=== PATIENT | female | born 1995 | race Hispanic/Latino ===

== ENCOUNTER 2020-10-16 18:47 | Emergency (ER) | payer BC ==
--- NOTE | 2020-10-17 10:46 | Emergency Department Report ---
<TEOFILO DENNIS - Last Filed: 10/17/20 15:32> ED Psych HPI - General Chief Complaint: Psych Stated Complaint: SUICIDAL THOUGHTS Time Seen by Provider: 10/17/20 10:27 Source: patient Mode of arrival: Ambulatory - History of Present Illness Initial Comments: Patient is a 25-year-old female with history of ADD, PTSD, and personality disorder who presents to the emergency department for evaluation of self-harm inflicted on herself out of frustration this past Friday. Patient states she burned her arm and banged her head against the wall because she was frustrated from being told her sinus infection was viral and from a change in her psychiatric medication. Patient denies suicidal or homicidal ideation at present time though notes she was suicidal without a plan on Friday, however, sent via [email or web address] from [email or web address] for evaluation of suicidal ideation. Associated Symptoms: denies other symptoms - Related Data Home Medications Medication Instructions Recorded Confirmed Last Taken Dextroamphetamine/Amphetamine 1 cap PO QAM 10/17/20 10/17/20 Unknown [Adderall Xr 25 mg Capsule] Fluticasone [Flonase] 1 spray INHALATION QAM 10/17/20 10/17/20 Unknown Gabapentin 2 cap PO TID 10/17/20 10/17/20 Unknown Levocetirizine Dihydrochloride 1 tab PO DAILY 10/17/20 10/17/20 Unknown [Xyzal] Omeprazole 1 cap PO DAILY 10/17/20 10/17/20 Unknown QUEtiapine [SEROquel] 100 mg PO QHS 10/17/20 10/17/20 Unknown Vortioxetine Hydrobromide 1 tab PO DAILY 10/17/20 10/17/20 Unknown [Trintellix] hydrOXYzine HCL [Atarax] 1 tab PO TID 10/17/20 10/17/20 Unknown traZODone [Desyrel] 50 mg PO QHS PRN 10/17/20 10/17/20 Unknown Allergies Allergy/AdvReac Type Severity Reaction Status Date / Time No Known Allergies Allergy Unverified 10/16/20 19:02 ED Review of Systems Comment: All other systems reviewed and negative ED Past Medical Hx - Past Medical History Previous Medical History?: No Hx Hypertension: No - Surgical History Past Surgical History?: No - Medications Home Medications: Home Medications Medication Instructions Recorded Confirmed Last Taken Type Dextroamphetamine/Amphetamine 1 cap PO QAM 10/17/20 10/17/20 Unknown History [Adderall Xr 25 mg Capsule] Fluticasone [Flonase] 1 spray INHALATION QAM 10/17/20 10/17/20 Unknown History Gabapentin 2 cap PO TID 10/17/20 10/17/20 Unknown History Levocetirizine Dihydrochloride 1 tab PO DAILY 10/17/20 10/17/20 Unknown History [Xyzal] Omeprazole 1 cap PO DAILY 10/17/20 10/17/20 Unknown History QUEtiapine [SEROquel] 100 mg PO QHS 10/17/20 10/17/20 Unknown History Vortioxetine Hydrobromide 1 tab PO DAILY 10/17/20 10/17/20 Unknown History [Trintellix] hydrOXYzine HCL [Atarax] 1 tab PO TID 10/17/20 10/17/20 Unknown History traZODone [Desyrel] 50 mg PO QHS PRN 10/17/20 10/17/20 Unknown History ED Physical Exam - General Limitations: No Limitations General appearance: alert, in no apparent distress - Head Head exam: Present: atraumatic, normocephalic - Eye Eye exam: Present: normal appearance - ENT ENT exam: Present: mucous membranes moist - Neck Neck exam: Present: normal inspection - Respiratory Respiratory exam: Present: normal lung sounds bilaterally. Absent: respiratory distress - Cardiovascular Cardiovascular Exam: Present: regular rate, normal rhythm. Absent: systolic murmur, diastolic murmur, rubs, gallop - GI/Abdominal GI/Abdominal exam: Present: soft, normal bowel sounds - Extremities Exam Extremities exam: Present: normal inspection - Back Exam Back exam: Present: normal inspection - Neurological Exam Neurological exam: Present: alert, oriented X3 - Psychiatric Psychiatric exam: Present: normal affect, normal mood - Skin Skin exam: Present: warm, dry, intact, normal color. Absent: rash ED Course - Reevaluation(s) Reevaluation #1: 10/17/20 15:32 Patient reevaluated and remains in no acute distress. Mental health contacted, evaluated patient, stated patient sent for medical clearance to [facility]. Lab work ordered. ED Disposition Clinical Impression: General medical exam Disposition: - TO HOME OR SELFCARE Condition: Stable Additional Instructions: Please follow-up with the outpatient resources that were provided to the patient within the next week. Recommend avoidance of recreational drugs, alcohol, and sedating substances. Recommend follow-up with a primary care doctor within the next week. Recommend avoidance of self-injurious behavior, attempts at self-harm. Please return to the emergency room right away with new pain, worsened pain, migration of pain, rectal vomiting, change in mental status, confusion, inability to tolerate liquid feeds, new, worsened or different symptoms not present on the initial emergency room evaluation. Professional and Agency Contacts To help [facility](02/06) [place] Crisis Line: Suicide Prevention Line: Crisis Text Line: Text START to [phone] Emergency: 911 Outpatient [facility] Resources: [place]: [facility] [address], [place] [address] [place]: [facility] - [address] [place] [address] Friday thru Friday - 8am - 5pm [facility] Address: [address] [place] [address] Friday thru Friday- 7am-2pm [facility] Address: [address] [place] [address] Friday thru Friday: 8:30AM-5PM Referrals: [facility] [Provider Group] - 3-5 Days [facility] [Outside] - 3-5 Days <DEACON PENA - Last Filed: 10/17/20 18:32> ED Review of Systems ROS: Stated complaint: SUICIDAL THOUGHTS Other details as noted in HPI ED Course Vital Signs 10/16/20 10/17/20 18:58 15:19 Temperature 98.1 F 98.0 F Pulse Rate 97 H 90 Respiratory 16 20 Rate Blood Pressure 141/100 Blood Pressure 139/95 [Right] O2 Sat by Pulse 93 96 Oximetry - Reevaluation(s) Reevaluation #1: 10/17/20 18:30 Patient is awake, alert, oriented, clinically sober, walking with a steady gait and exhibits decision-making capacity. She does not meet criteria for involuntary hold or 1013 hold at this time. The psychiatric team has assessed her, and indicated that the patient is suitable to follow-up as an outpatient. She was medically cleared earlier on today. She is walking around, and denies physical pain at this time. Does not appear to have an emergent medical condition at this time that requires inpatient medical hospitalization. ED Medical Decision Making - Lab Data Result diagrams: 10/17/20 16:02 10/17/20 16:02 Vital Signs 10/16/20 10/17/20 18:58 15:19 Temperature 98.1 F 98.0 F Pulse Rate 97 H 90 Respiratory 16 20 Rate Blood Pressure 141/100 Blood Pressure 139/95 [Right] O2 Sat by Pulse 93 96 Oximetry Lab Results 10/17/20 10/17/20 10/17/20 Range/Units 16:02 16:02 16:02 WBC 13.4 H (4.5-11.0) K/mm3 RBC 4.98 (3.65-5.03) M/mm3 Hgb 14.6 H (10.1-14.3) gm/dl Hct 44.2 H (30.3-42.9) % MCV 89 (79-97) fl MCH 29 (28-32) pg MCHC 33 (30-34) % RDW 13.1 L (13.2-15.2) % Plt Count 287 (140-440) K/mm3 Lymph % (Auto) 28.6 (13.4-35.0) % [place] % (Auto) 6.9 (0.0-7.3) % Eos % (Auto) 5.7 H (0.0-4.3) % Baso % (Auto) 0.7 (0.0-1.8) % Lymph # (Auto) 3.8 (1.2-5.4) K/mm3 [place] # (Auto) 0.9 H (0.0-0.8) K/mm3 Eos # (Auto) 0.8 H (0.0-0.4) K/mm3 Baso # (Auto) 0.1 (0.0-0.1) K/mm3 Seg Neutrophils % 58.1 (40.0-70.0) % Seg Neutrophils # 7.7 (1.8-7.7) K/mm3 Sodium 138 (137-145) mmol/L Potassium 4.2 (3.6-5.0) mmol/L Chloride 105.4 (98-107) mmol/L Carbon Dioxide 22 (22-30) mmol/L Anion Gap 15 mmol/L BUN 16 (7-17) mg/dL Creatinine 0.7 (0.6-1.2) mg/dL Estimated GFR > 60 ml/min BUN/Creatinine Ratio 23 % Glucose 91 (65-100) mg/dL Calcium 9.1 (8.4-10.2) mg/dL Urine Color (Yellow) Urine Turbidity (Clear) Urine pH (5.0-7.0) Ur Specific [place] (1.003-1.030) Urine Protein (Negative) mg/dL Urine Glucose (UA) (Negative) mg/dL Urine Ketones (Negative) mg/dL Urine Blood (Negative) Urine Nitrite (Negative) Urine Bilirubin (Negative) Urine Urobilinogen (<2.0) mg/dL Ur Leukocyte Esterase (Negative) Urine WBC (Auto) (0.0-6.0) /HPF Urine RBC (Auto) (0.0-6.0) /HPF U Epithel Cells (Auto) (0-13.0) /HPF Urine Mucus /HPF Urine HCG, Qual (Negative) Salicylates < 0.3 L (2.8-20.0) mg/dL Urine Opiates Screen Urine Methadone Screen Acetaminophen (10.0-30.0) ug/mL Ur Barbiturates Screen Ur Phencyclidine Scrn Ur Amphetamines Screen U Benzodiazepines Scrn Urine Cocaine Screen U Marijuana (THC) Screen Drugs of Abuse Note Plasma/Serum Alcohol (0-0.07) % 10/17/20 10/17/20 10/17/20 Range/Units 16:02 16:02 Unknown WBC (4.5-11.0) K/mm3 RBC (3.65-5.03) M/mm3 Hgb (10.1-14.3) gm/dl Hct (30.3-42.9) % MCV (79-97) fl MCH (28-32) pg MCHC (30-34) % RDW (13.2-15.2) % Plt Count (140-440) K/mm3 Lymph % (Auto) (13.4-35.0) % [place] % (Auto) (0.0-7.3) % Eos % (Auto) (0.0-4.3) % Baso % (Auto) (0.0-1.8) % Lymph # (Auto) (1.2-5.4) K/mm3 [place] # (Auto) (0.0-0.8) K/mm3 Eos # (Auto) (0.0-0.4) K/mm3 Baso # (Auto) (0.0-0.1) K/mm3 Seg Neutrophils % (40.0-70.0) % Seg Neutrophils # (1.8-7.7) K/mm3 Sodium (137-145) mmol/L Potassium (3.6-5.0) mmol/L Chloride (98-107) mmol/L Carbon Dioxide (22-30) mmol/L Anion Gap mmol/L BUN (7-17) mg/dL Creatinine (0.6-1.2) mg/dL Estimated GFR ml/min BUN/Creatinine Ratio % Glucose (65-100) mg/dL Calcium (8.4-10.2) mg/dL Urine Color Yellow (Yellow) Urine Turbidity Clear (Clear) Urine pH 6.0 (5.0-7.0) Ur Specific [place] 1.026 (1.003-1.030) Urine Protein 30 mg/dl (Negative) mg/dL Urine Glucose (UA) Neg (Negative) mg/dL Urine Ketones Neg (Negative) mg/dL Urine Blood Neg (Negative) Urine Nitrite Neg (Negative) Urine Bilirubin Neg (Negative) Urine Urobilinogen 2.0 (<2.0) mg/dL Ur Leukocyte Esterase Neg (Negative) Urine WBC (Auto) 1.0 (0.0-6.0) /HPF Urine RBC (Auto) 3.0 (0.0-6.0) /HPF U Epithel Cells (Auto) 9.0 (0-13.0) /HPF Urine Mucus Few /HPF Urine HCG, Qual Negative (Negative) Salicylates (2.8-20.0) mg/dL Urine Opiates Screen Urine Methadone Screen Acetaminophen 5.0 L (10.0-30.0) ug/mL Ur Barbiturates Screen Ur Phencyclidine Scrn Ur Amphetamines Screen U Benzodiazepines Scrn Urine Cocaine Screen U Marijuana (THC) Screen Drugs of Abuse Note Plasma/Serum Alcohol < 0.01 (0-0.07) % 10/17/20 Range/Units Unknown WBC (4.5-11.0) K/mm3 RBC (3.65-5.03) M/mm3 Hgb (10.1-14.3) gm/dl Hct (30.3-42.9) % MCV (79-97) fl MCH (28-32) pg MCHC (30-34) % RDW (13.2-15.2) % Plt Count (140-440) K/mm3 Lymph % (Auto) (13.4-35.0) % [place] % (Auto) (0.0-7.3) % Eos % (Auto) (0.0-4.3) % Baso % (Auto) (0.0-1.8) % Lymph # (Auto) (1.2-5.4) K/mm3 [place] # (Auto) (0.0-0.8) K/mm3 Eos # (Auto) (0.0-0.4) K/mm3 Baso # (Auto) (0.0-0.1) K/mm3 Seg Neutrophils % (40.0-70.0) % Seg Neutrophils # (1.8-7.7) K/mm3 Sodium (137-145) mmol/L Potassium (3.6-5.0) mmol/L Chloride (98-107) mmol/L Carbon Dioxide (22-30) mmol/L Anion Gap mmol/L BUN (7-17) mg/dL Creatinine (0.6-1.2) mg/dL Estimated GFR ml/min BUN/Creatinine Ratio % Glucose (65-100) mg/dL Calcium (8.4-10.2) mg/dL Urine Color (Yellow) Urine Turbidity (Clear) Urine pH (5.0-7.0) Ur Specific [place] (1.003-1.030) Urine Protein (Negative) mg/dL Urine Glucose (UA) (Negative) mg/dL Urine Ketones (Negative) mg/dL Urine Blood (Negative) Urine Nitrite (Negative) Urine Bilirubin (Negative) Urine Urobilinogen (<2.0) mg/dL Ur Leukocyte Esterase (Negative) Urine WBC (Auto) (0.0-6.0) /HPF Urine RBC (Auto) (0.0-6.0) /HPF U Epithel Cells (Auto) (0-13.0) /HPF Urine Mucus /HPF Urine HCG, Qual (Negative) Salicylates (2.8-20.0) mg/dL Urine Opiates Screen Presumptive negative Urine Methadone Screen Presumptive negative Acetaminophen (10.0-30.0) ug/mL Ur Barbiturates Screen Presumptive negative Ur Phencyclidine Scrn Presumptive negative Ur Amphetamines Screen Presumptive negative U Benzodiazepines Scrn Presumptive negative Urine Cocaine Screen Presumptive negative U Marijuana (THC) Screen Presumptive positive Drugs of Abuse Note Disclamer Plasma/Serum Alcohol (0-0.07) % Critical care attestation.: If time is entered above; I have spent that time in minutes in the direct care of this critically ill patient, excluding procedure time. ED Disposition Is pt being admited?: No Does the pt Need Aspirin: No
[2020-10-17 16:18] LABS: Basophils # (Auto) 0.1 K/mm3 (0.0-0.1); Basophils % (Auto) 0.7 % (0.0-1.8); Eosinophils # (Auto) 0.8 K/mm3 (0.0-0.4); Eosinophils % (Auto) 5.7 % (0.0-4.3); Hematocrit 44.2 % (30.3-42.9); Hemoglobin 14.6 gm/dl (10.1-14.3); Lymphocytes # (Auto) 3.8 K/mm3 (1.2-5.4); Lymphocytes % (Auto) 28.6 % (13.4-35.0); Mean Corpuscular HGB Conc 33 % (30-34); Mean Corpuscular Volume 89 fl (79-97); Monocytes # (Auto) 0.9 K/mm3 (0.0-0.8); Monocytes % (Auto) 6.9 % (0.0-7.3); Platelet Count 287 K/mm3 (140-440); Red Blood Count 4.98 M/mm3 (3.65-5.03); Red Cell Distribution Width 13.1 % (13.2-15.2)
[2020-10-17 16:34] LABS: Blood Urea Nitrogen 16 mg/dL (7-17); Calcium 9.1 mg/dL (8.4-10.2); Hemolysis Index 14
[2020-10-17 16:36] LABS: BUN/Creatinine Ratio 23
[2020-10-17 17:07] LABS: Amphetamine Screen,Urine PRESUMPTIVE NEGATIVE; Benzodiazepines Screen,Urine PRESUMPTIVE NEGATIVE; Cannabinoid Screen,Urine PRESUMPTIVE POSITIVE; Cocaine Screen,Urine PRESUMPTIVE NEGATIVE; Methadone Screen,Urine PRESUMPTIVE NEGATIVE; Opiate Screen,Urine PRESUMPTIVE NEGATIVE
[2020-10-17 17:08] LABS: Bilirubin,Urine NEG (Negative); Blood,Urine NEG (Negative); Color,Urine Yellow (Yellow); Mucus,Urine FEW /HPF
[2020-10-17 17:10] LABS: HCG Qualitative,Urine Negative (Negative)
[2020-10-17 20:24] VITALS: BP 131/91
== END 2020-10-17 20:15 | disposition home or self-care (01) ==
LOC: ED 18:47
DX: R45.851 Suicidal ideations (principal); Z00.00 Encounter for general adult medical examination without abnormal findings; Z79.899 Other long term (current) drug therapy
CPT/HCPCS: 36415; 80048; 80307; 80320; 81001; 81025; 85025; G0480